=== PATIENT | female | born 1975 | race Caucasian/White ===

== ENCOUNTER 2018-03-27 14:55 | Inpatient (IN) | payer OTHER ==
[~2018-03-27] VITALS: Ht 160 cm; Wt 167.8 kg
--- NOTE | 2018-03-27 16:20 | NUR ---
SE RECIBE PTE ALERTA Y ORIENTADA X3, PTE REFIERE VENIR POR VOMITOS. SE LE REALIZA SIGNOS VITALES A PTE, LA CUAL PRESENTO UN PULSO DE 150, T: 103.5 Y SAT 96. SE LE REALIZA EKG Y SE LE PRESENTA A EL CUAL INDICA COLOCAR A PTE EN UNIDAD DE CHEST PAIN.
--- NOTE | 2018-03-27 17:09 | NUR ---
SE RECIBE PTE ALERTA Y ORIENTADA EN TIMEPO, LUGAR Y PERSONA. SE CONECTA A MONITOR CARDIACO, CUFF DE PRESION Y OXIMETRO DE PULSO. SE SHAWN MUESTRAS DE ANTONIA Y SE CANALIZA PERIFERALMENTE. SE ADMINISTRAN MEDICAMENTOS ORDENADOS. SE NOTIFICA A PERSONAL DE RX PARA ESTUDIO PENDIENTE. PTE PENDIENTE A RE-EVALUACION POR DR. ROSARIO.
--- NOTE | 2018-03-27 17:30 | NUR ---
SE NOTIFICAN S/V A DR. VALENCIA QUIEN ORDENA 2L DE .9NSS FULL DRIP.
--- NOTE | 2018-03-27 18:00 | NUR ---
SE NOTIFICAN BP 60/[address] ANNIE ARRIAZA ORDENA CONTINUAR CON .9 NSS IV 3,000ML FULL DRIP.
== END 2018-04-03 10:49 | disposition home or self-care (01) | DRG 682 ==
LOC: ER 14:55 → MEDI 19:57 → ICU-2 19:57 → MEDI 03-30 15:23
PROVIDERS: ADMIT Internal Medicine
PROC: 0T9B70Z Drainage of Bladder with Drainage Device, Via Natural or Artificial Opening (ICD-10-PCS; 2018-03-27)
PROC: BW21Y0Z Computerized Tomography (CT Scan) of Abdomen and Pelvis using Other Contrast, Unenhanced and Enhanced (ICD-10-PCS; principal; 2018-03-28)
PROC: 4A12X4Z Monitoring of Cardiac Electrical Activity, External Approach (ICD-10-PCS; 2018-03-30)
DX: N17.9 Acute kidney failure, unspecified (principal); R65.21 Severe sepsis with septic shock; N39.0 Urinary tract infection, site not specified; E86.0 Dehydration; E87.8 Other disorders of electrolyte and fluid balance, not elsewhere classified; D72.829 Elevated white blood cell count, unspecified; I12.9 Hypertensive chronic kidney disease with stage 1 through stage 4 chronic kidney disease, or unspecified chronic kidney disease; N18.2 Chronic kidney disease, stage 2 (mild); E66.01 Morbid (severe) obesity due to excess calories